=== PATIENT | male | born 1955 | race Caucasian/White ===

== ENCOUNTER 2020-09-04 12:18 | Inpatient (IN) | payer MEDICARE ==
[2020-09-04 12:54] LABS: #Basophils 0.1 thou/uL (0.0-0.2); #Eosinphils 0.3 thou/uL (0.0-0.7); #Lymphocytes 2.5 thou/uL (1.20-3.40); #Monocytes 0.8 thou/uL (0.11-0.59); #Neutrophils 6.9 thou/uL (1.40-6.50); %Basophils 0.5 % (0.0-1.0); %Eosinophils 3.2 % (0.0-10.0); %Lymphocytes 23.6 % (21.0-51.0); %Monocytes 7.7 % (0.0-10.0); %Neutrophils 64.9 % (42.0-75.0); Hemoglobin 13.4 g/dL (14.0-18.0); Mean Corpuscular HGB CONC 33.6 g/dL (32.0-36.0); Mean Corpuscular Hemoglobin 28.5 pg (27.0-31.0); Mean Corpuscular Volume 84.7 fL (78.0-98.0); Mean Platelet Volume 7.8 fL (7.4-10.4); Platelet Count 236 thou/uL (130-400); RBC Distribution Width 13.3 % (11.5-14.5); Red Blood Cell (RBC) Count 4.69 mill/uL (4.70-6.10); White Blood Cell (WBC) Count 10.7 thou/uL (4.8-10.8)
[2020-09-04 13:16] LABS: ALT (SGPT) Less than 7 U/L (8-55); AST (SGOT) 10 U/L (5-34); Albumin 4.1 g/dL (3.4-4.8); Alkaline Phosphatase 93 U/L (40-110); Anion Gap 13 mmol/L (10-20); BUN (Urea Nitrogen) 12 mg/dL (8.4-25.7); Bilirubin, Total 0.6 mg/dL (0.2-1.2); Calc. Creatinine Clearance 0 mL/min (70-130); Calcium 9.2 mg/dL (7.8-10.44); Carbon Dioxide 29 mmol/L (23-31); Chloride 106 mmol/L (98-107); Globulin 2.6 g/dL (2.4-3.5); Glucose 112 mg/dL (80-115); Potassium 4.2 mmol/L (3.5-5.1); Protein, Total 6.7 g/dL (5.8-8.1); Sodium 144 mmol/L (136-145)
[2020-09-04] MEDS ORDERED: Aspirin Chewable 81 MG TAB ONE (14:30)
[2020-09-04] MEDS ORDERED: Dextrose 50% Abboject 50 ML SYRINGE SLOW IVP PRN (16:11)
[2020-09-04] MEDS ORDERED: Dextrose 5% in Water 1,000 ML IV PRN (16:11)
[2020-09-04] MEDS ORDERED: Acetaminophen 325 MG TAB PO PRN (16:11)
[2020-09-04 16:35] LABS: Troponin I 0.042 ng/mL (< 0.028)
[2020-09-04 16:51] VITALS: BMI 35.3
[2020-09-04] MEDS: Sodium Chloride 0.9% 1,000 ML IV SCH (17:21)
[2020-09-04] MEDS ORDERED: Nitroglycerin 2% Ointment 1 INCH/1 GM Packet TOP SCH (18:45)
[2020-09-04] MEDS ORDERED: Nitroglycerin 2% Ointment 1 INCH/1 GM Packet ONE (18:46)
[2020-09-04 19:25] LABS: Troponin I 0.017 ng/mL (< 0.028)
[2020-09-04] MEDS: HumaLOG 300 UNITS/3 ML VIAL SC PRN (21:02)
[2020-09-04 21:28] LABS: Troponin I 0.018 ng/mL (< 0.028)
[2020-09-05] MEDS: Nitroglycerin 2% Ointment 1 INCH/1 GM Packet TOP SCH ×4 (00:35→23:10)
[2020-09-05 02:03] LABS: SARS-CoV-2 PCR by NAA Not Detected (NotDetected)
[2020-09-05 05:23] LABS: #Basophils 0.1 thou/uL (0.0-0.2); #Eosinphils 0.4 thou/uL (0.0-0.7); #Lymphocytes 3.7 thou/uL (1.20-3.40); #Neutrophils 6.1 thou/uL (1.40-6.50); %Basophils 0.7 % (0.0-1.0); %Eosinophils 3.2 % (0.0-10.0); %Lymphocytes 32.9 % (21.0-51.0); %Monocytes 8.5 % (0.0-10.0); %Neutrophils 54.7 % (42.0-75.0); Hemoglobin 13.4 g/dL (14.0-18.0); Mean Corpuscular HGB CONC 33.6 g/dL (32.0-36.0); Mean Corpuscular Hemoglobin 28.3 pg (27.0-31.0); Mean Corpuscular Volume 84.4 fL (78.0-98.0); Mean Platelet Volume 7.7 fL (7.4-10.4); Platelet Count 254 thou/uL (130-400); RBC Distribution Width 12.9 % (11.5-14.5); Red Blood Cell (RBC) Count 4.75 mill/uL (4.70-6.10); White Blood Cell (WBC) Count 11.2 thou/uL (4.8-10.8)
[2020-09-05 05:51] LABS: Anion Gap 13 mmol/L (10-20); BUN (Urea Nitrogen) 12 mg/dL (8.4-25.7); Calc. Creatinine Clearance 107 mL/min (70-130); Calcium 9.1 mg/dL (7.8-10.44); Carbon Dioxide 29 mmol/L (23-31); Chloride 101 mmol/L (98-107); Glucose 207 mg/dL (80-115); Sodium 139 mmol/L (136-145)
[2020-09-05] MEDS: HumaLOG 300 UNITS/3 ML VIAL SC PRN ×3 (05:59→20:04)
[2020-09-05] MEDS: Tamsulosin HCl 0.4 MG CAP PO SCH (08:36)
[2020-09-05] MEDS: Aspirin 81 mg Enteric Coated Tablet PO SCH (08:36)
[2020-09-05] MEDS: Hydrochlorothiazide 25 MG TAB PO SCH (08:36)
[2020-09-05] MEDS: Amlodipine 5 MG TAB PO SCH (08:36)
[2020-09-05] MEDS: Gabapentin 300 MG CAP PO SCH (08:36)
[2020-09-05] MEDS: metFORMIN 500 MG TAB PO SCH ×2 (08:37→19:50)
[2020-09-05] MEDS: Carvedilol 25 MG TAB PO SCH ×2 (08:37→19:50)
[2020-09-05] MEDS ORDERED: Aspirin 325 mg Enteric Coated Tablet PO SCH (09:00)
[2020-09-05] MEDS ORDERED: Ondansetron PF 4 MG/2 ML Vial IVP PRN (09:10)
[2020-09-05] MEDS: Sodium Chloride 0.9% 1,000 ML IV SCH (10:24)
[2020-09-05] MEDS ORDERED: ADENOSINE 60 MG/20 ML VIAL ONE (13:23)
[2020-09-05] MEDS ORDERED: cloNIDine 0.1 MG TAB PO PRN (16:33)
[2020-09-05] MEDS ORDERED: Gabapentin 300 MG CAP PO SCH (21:00)
[2020-09-06] MEDS: HumaLOG 300 UNITS/3 ML VIAL SC PRN ×2 (06:24→11:59)
[2020-09-06] MEDS: Nitroglycerin 2% Ointment 1 INCH/1 GM Packet TOP SCH (06:27)
[2020-09-06] MEDS ORDERED: glyBURIDE 5 MG TAB PO SCH (07:30)
[2020-09-06 07:54] VITALS: TEMP 98.3
[2020-09-06] MEDS: metFORMIN 500 MG TAB PO SCH (08:31)
[2020-09-06] MEDS: Hydrochlorothiazide 25 MG TAB PO SCH (08:32)
[2020-09-06] MEDS: Gabapentin 300 MG CAP PO SCH (08:32)
[2020-09-06] MEDS: Sodium Chloride 0.9% 1,000 ML IV SCH (08:33)
[2020-09-06] MEDS: Amlodipine 5 MG TAB PO SCH (08:33)
[2020-09-06] MEDS: Aspirin 81 mg Enteric Coated Tablet PO SCH (08:33)
[2020-09-06] MEDS: Carvedilol 25 MG TAB PO SCH (08:33)
[2020-09-06] MEDS: Tamsulosin HCl 0.4 MG CAP PO SCH (08:33)
[2020-09-06 10:43] LABS: Cardiac Risk 3.5 (Less than 4.5)
[2020-09-06 11:45] VITALS: BP 114/57
== END 2020-09-06 12:21 | disposition home or self-care (01) | DRG 313 ==
LOC: ERS 12:18 → SUATTDRO 12:18 → 2SW 14:35 → OBSVTOIN 09-05 18:31
PROVIDERS: ADMIT Internal Medicine; ATTEND Internal Medicine
DX: R07.89 Other chest pain (principal); E78.5 Hyperlipidemia, unspecified; E11.649 Type 2 diabetes mellitus with hypoglycemia without coma; Z20.822 Contact with and (suspected) exposure to COVID-19; R55 Syncope and collapse; N18.2 Chronic kidney disease, stage 2 (mild); E66.9 Obesity, unspecified; E11.22 Type 2 diabetes mellitus with diabetic chronic kidney disease; R00.1 Bradycardia, unspecified; N40.0 Benign prostatic hyperplasia without lower urinary tract symptoms; K21.9 Gastro-esophageal reflux disease without esophagitis; M19.90 Unspecified osteoarthritis, unspecified site; Z68.35 Body mass index [BMI] 35.0-35.9, adult; I12.9 Hypertensive chronic kidney disease with stage 1 through stage 4 chronic kidney disease, or unspecified chronic kidney disease; E11.69 Type 2 diabetes mellitus with other specified complication; I25.10 Atherosclerotic heart disease of native coronary artery without angina pectoris; Z95.1 Presence of aortocoronary bypass graft; Z90.49 Acquired absence of other specified parts of digestive tract; Z87.891 Personal history of nicotine dependence
CPT/HCPCS: 36415; 36416; 71045; 78452; 80048; 80053; 80061; 82553; 84484; 85025; 85379; 87635; 93005; 93010; 93017; 93306; A9500; G0378; J0153; J1815; U0003; U0005

== ENCOUNTER 2024-02-29 18:21 | Observation (INO) | payer MEDICARE ==
[2024-02-29 19:50] LABS: #Basophils 0.04 10x3/uL (0.0-0.2); %Basophils 0.3 % (0.0-1.0); %Eosinophils 1.7 % (0.0-10.0); %Lymphocytes 16.9 % (21.0-51.0); %Monocytes 7.2 % (0.0-10.0); %Neutrophils 73.4 % (42.0-75.0); Hematocrit 42.6 % (42.0-52.0); Hemoglobin 14.1 g/dL (14.0-18.0); Mean Corpuscular HGB CONC 33.1 g/dL (32.0-36.0); Mean Corpuscular Hemoglobin 28.1 pg (27.0-31.0); Mean Corpuscular Volume 84.9 fL (78.0-98.0); Mean Platelet Volume 9.7 fL (7.4-10.4); Platelet Count 282 10x3/uL (130-400); Red Blood Cell (RBC) Count 5.02 mill/uL (4.70-6.10)
[2024-02-29 20:11] LABS: ALT (SGPT) 6 U/L (8-55); AST (SGOT) 25 U/L (5-34); Albumin 3.8 g/dL (3.4-4.8); Alkaline Phosphatase 76 U/L (40-110); Anion Gap 12 mmol/L (10-20); BUN (Urea Nitrogen) 11 mg/dL (8.4-25.7); Bilirubin, Total 0.8 mg/dL (0.2-1.2); Calc. Creatinine Clearance 0 mL/min (70-130); Calcium 9.5 mg/dL (7.8-10.44); Carbon Dioxide 28 mmol/L (23-31); Chloride 102 mmol/L (98-107); Estimated GFR 82; Globulin 3.6 g/dL (2.4-3.5); Glucose 82 mg/dL (83-110); Potassium 3.4 mmol/L (3.5-5.1); Protein, Total 7.4 g/dL (5.8-8.1); Sodium 139 mmol/L (136-145)
[2024-02-29] MEDS ORDERED: Dextrose 50% Abboject 50 ML SYRINGE SLOW IVP PRN (21:40)
[2024-02-29] MEDS ORDERED: Dextrose 5% in Water 1,000 ML IV PRN (21:40)
[2024-02-29] MEDS ORDERED: Glucagon 1 MG/ML KIT IM PRN (21:40)
[2024-02-29] MEDS ORDERED: Ondansetron PF 4 MG/2 ML Vial IVP PRN (21:41)
[2024-02-29] MEDS ORDERED: Ondansetron ODT 4 MG TAB PO PRN (21:41)
[2024-02-29] MEDS ORDERED: Acetaminophen 650 MG Suppository PR PRN (21:41)
[2024-02-29] MEDS ORDERED: ELECTROLYTE REPLACEMENT PROTOCOL FS SCH (21:43)
[2024-02-29 22:32] LABS: Hemoglobin A1c 6.4 % (4.0-6.0)
[2024-03-01 01:21] VITALS: BMI 32.5
[2024-03-01] MEDS: Octreotide Acetate 50 MCG/ML AMP SC SCH (01:38)
[2024-03-01] MEDS: Acetaminophen 325 MG TAB PO SCH (01:40)
[2024-03-01] MEDS: Amlodipine 5 MG TAB PO SCH ×3 (01:51→08:50)
[2024-03-01] MEDS: Insulin Lispro 100 UNIT/ML 10 ML VIAL SC PRN ×2 (06:33→11:44)
[2024-03-01 08:25] VITALS: BP 176/84; TEMP 98.7
[2024-03-01] MEDS: Carvedilol 25 MG TAB PO SCH (08:48)
[2024-03-01] MEDS: Tamsulosin HCl 0.4 MG CAP PO SCH (08:48)
[2024-03-01] MEDS: Isosorbide Mononitrate 30 MG ER.TAB PO SCH (08:49)
[2024-03-01] MEDS: metFORMIN 500 MG TAB PO SCH (08:49)
[2024-03-01] MEDS: Fish Oil 1,000 MG CAP PO SCH (08:50)
[2024-03-01] MEDS: Gabapentin 300 MG CAP PO SCH (08:50)
[2024-03-01] MEDS: Hydrochlorothiazide 25 MG TAB PO SCH (08:51)
[2024-03-01] MEDS: Aspirin 81 mg Enteric Coated Tablet PO SCH (08:51)
[2024-03-01] MEDS: Famotidine 20 MG TAB PO SCH (08:51)
[2024-03-01] MEDS: Sertraline 100 MG TAB PO SCH (08:51)
[2024-03-01] MEDS: Famotidine/PF 20 mg/2ml Vial SLOW IVP SCH (08:56)
[2024-03-01] MEDS: HumuLIN 70/30 100 Unit/ml 10 ml Vial SC SCH (08:56)
[2024-03-01 10:51] LABS: #Basophils 0.04 10x3/uL (0.0-0.2); %Basophils 0.4 % (0.0-1.0); %Eosinophils 2.1 % (0.0-10.0); %Lymphocytes 21.4 % (21.0-51.0); %Monocytes 9.4 % (0.0-10.0); %Neutrophils 66.3 % (42.0-75.0); Hematocrit 44.2 % (42.0-52.0); Hemoglobin 14.4 g/dL (14.0-18.0); Mean Corpuscular HGB CONC 32.6 g/dL (32.0-36.0); Mean Corpuscular Hemoglobin 27.6 pg (27.0-31.0); Mean Corpuscular Volume 84.7 fL (78.0-98.0); Mean Platelet Volume 10.2 fL (7.4-10.4); Platelet Count 319 10x3/uL (130-400); Red Blood Cell (RBC) Count 5.22 mill/uL (4.70-6.10)
[2024-03-01 11:11] LABS: ALT (SGPT) 5 U/L (8-55); AST (SGOT) 13 U/L (5-34); Albumin 3.8 g/dL (3.4-4.8); Alkaline Phosphatase 86 U/L (40-110); Anion Gap 14 mmol/L (10-20); BUN (Urea Nitrogen) 12 mg/dL (8.4-25.7); Bilirubin, Total 0.8 mg/dL (0.2-1.2); Calc. Creatinine Clearance 87 mL/min (70-130); Calcium 9.4 mg/dL (7.8-10.44); Carbon Dioxide 26 mmol/L (23-31); Chloride 102 mmol/L (98-107); Estimated GFR 74; Globulin 3.3 g/dL (2.4-3.5); Glucose 272 mg/dL (83-110); Potassium 3.3 mmol/L (3.5-5.1); Protein, Total 7.1 g/dL (5.8-8.1); Sodium 139 mmol/L (136-145)
[2024-03-01] MEDS: Potassium Chloride 20 MEQ TAB PO SCH (13:40)
[2024-03-01] MEDS ORDERED: HumuLIN 70/30 100 Unit/ml 10 ml Vial SC SCH (21:00)
[2024-03-04] MEDS ORDERED: FLU (Fluad Triv) TS24-25 (65UP)/MF59C/PF 45 MCG/0.5 ML Syringe IM ONE (01:45)
== END 2024-03-01 13:45 | disposition home or self-care (01) ==
LOC: ERS 18:21 → T4-A 22:24
PROVIDERS: ADMIT Student in an Organized Health Care Education/Training Program; ATTEND Student in an Organized Health Care Education/Training Program
DX: E16.2 Hypoglycemia, unspecified (principal); E11.9 Type 2 diabetes mellitus without complications; I11.0 Hypertensive heart disease with heart failure; I50.30 Unspecified diastolic (congestive) heart failure; N40.0 Benign prostatic hyperplasia without lower urinary tract symptoms; Z90.49 Acquired absence of other specified parts of digestive tract; Z95.1 Presence of aortocoronary bypass graft; Z98.890 Other specified postprocedural states; Z98.52 Vasectomy status; Z79.4 Long term (current) use of insulin; Z79.84 Long term (current) use of oral hypoglycemic drugs; Z79.82 Long term (current) use of aspirin; Z79.899 Other long term (current) drug therapy; V89.2XXA Person injured in unspecified motor-vehicle accident, traffic, initial encounter
CPT/HCPCS: 80053 ×2; 82962 ×2; 83036; 85025 ×2; 93005; 96372; 99285; G0378 ×2; J2354; 36415; 36416; J1815